=== PATIENT | female | born 1975 ===

== ENCOUNTER 2018-11-02 12:03 | Outpatient (CLI) | payer OTHER | END 2018-11-02 12:04 | disposition home or self-care (01) | LOC: C.LAB 12:03 | DX: Z00.00 Encounter for general adult medical examination without abnormal findings (principal) ==

== ENCOUNTER 2018-11-25 11:08 | Outpatient (CLI) | payer OTHER | END 2018-11-25 11:09 | disposition home or self-care (01) | LOC: C.MAMMO 11:09 ==